=== PATIENT | female | born 1950 | race Caucasian/White ===

== ENCOUNTER 2018-01-20 09:18 | Emergency (ER) | payer MEDICARE ==
[2018-01-20 10:04] VITALS: BP 129/73
--- NOTE | 2018-01-20 10:40 | UC ---
Upper Extremity HPI - HPI Summary HPI Summary: 67 year old female presents with right elbow pain. States yesterday she slipped on wet grass, fell backward, and struck right elbow on metal painter of horse trailer. Pain is constant ache over lateral aspect of elbow. Non-radiating. Worsens with movement. Improves with meloxicam. Denies numbness or tingling. - History of Current Complaint Chief Complaint: UCUpperExtremity Stated Complaint: RIGHT ARM INJURY Time Seen by Provider: 01/20/18 10:18 Hx Obtained From: Patient Onset/Duration: Sudden Onset Severity Currently: Moderate Pain Intensity: 9 Location Of Pain: Is Discrete @ - right lateral elbow Character: Aching Aggravating Factor(s): Movement, Flexion, Extension Alleviating Factor(s): OTC Meds, Rest Associated Signs And Symptoms: Negative: Swelling, Bruising, Weakness, Numbness/ Tingling - Allergies/Home Medications Allergies/Adverse Reactions: Allergies Allergy/AdvReac Type Severity Reaction Status Date / Time Adhesive Tape Allergy Rash Verified 01/20/18 09:55 Home Medications: Home Medications Meloxicam [Mobic] 1 tab DAILY 01/20/18 [History Confirmed 01/20/18] PMH/Surg Hx/FS Hx/Imm Hx Cardiovascular History: Hypertension Other History Of: Negative For: Anticoagulant Therapy - Surgical History Surgical History: Yes Surgery Procedure, Year, and Place: BILATERAL HIP REPLACEMENT/BUNION REMOVAL/ TUBIAL LIGATION - Family History Family History: Noncontributory - Social History Occupation: Retired Lives: With Family Alcohol Use: Rare Substance Use Type: None Smoking Status (MU): Never Smoked Tobacco Review of Systems Constitutional: Negative Skin: Negative Neurovascular: Negative Musculoskeletal: Arthralgia - right elbow, Decreased ROM - right elbow Is Patient Immunocompromised?: No All Other Systems Reviewed And Are Negative: Yes Physical Exam Triage Information Reviewed: Yes Appearance: Well-Appearing, Well-Nourished, Pain Distress - Mildly uncomfortable. Right arm supported with pillow. Vital Signs: Initial Vital Signs Temp 98 F 01/20/18 09:57 Pulse 73 01/20/18 09:57 Resp 16 01/20/18 09:57 BP 129/73 01/20/18 09:57 Pulse Ox 97 01/20/18 09:57 Neck: Positive: Supple, Nontender Respiratory: Positive: No respiratory distress Cardiovascular: Positive: Pulses Normal, Brisk Capillary Refill Musculoskeletal: Positive: Strength Intact - Slat Pickler strengths equal bilaterally, ROM Limited @ - Flexion and extension right elbow d/t pain, Edema @ - Mild edema left lateral elbow, Other: - Tenderness with palpation over lateral epicondyle. No crepitus or gross deformity noted. Diagnostics - Radiology No standard instances Xray Interpretation: Positive (See Comments) Radiology Interpretation Completed By: ED Physician - Mildly displaced fracture lateral epicondyle right humerus - question of old fracture, Radiologist - Patient Name: PEDRO NUNES Medical Record#: [id number] Ordering Physician : Jl Anaya NP Acct.#: [id number] : 1950 Age: 67 Sex: F Location: [facility] [place] Exam Date: 01/20/18 1025 ADM Status: REG ER Order Information: ELBOW RIGHT 3+ VWS Accession Number: [id number] CPT: 92400 Indication: Right arm injury. 4 views of the right elbow demonstrates degenerative changes with osteophyte formation of the coronoid process as well as the radius. The lateral epicondyles demonstrate likely old injury. No acute injury is noted. IMPRESSION: Multiple areas of degenerative changes with osteophyte formation. Likely old fracture of the lateral epicondyles. Upper Extremity Course/Dx - Course Course Of Treatment: 67-year-old female presents with right elbow pain after slipping and falling yesterday and striking her elbow on the metal painter of a horse trailer. On exam she was tender over the lateral aspect of the elbow. X- ray shows a fracture of the lateral condyle was a question as to whether this may be an old fracture. With the pain will treat as an acute fracture. Patient was placed in a sling. Recommend RICE, zhac-iih-ipualir analgesics, and range of motion exercises. She was given a referral for follow-up with orthopedic surgery. Warning symptoms reviewed. Verbalizes understanding and agrees with plan of care. - Differential Dx/Diagnosis Differential Diagnosis/HQI/PQRI: Bursitis, Contusion, Fracture (Closed) Provider Diagnoses: right elbow pain Discharge - Sign-Out/Discharge Documenting (check all that apply): Patient Departure All imaging exams completed and their final reports reviewed: Yes - Discharge Plan Condition: Stable Disposition: HOME Patient Education Materials: Elbow Fracture (ED) Referrals: Eros Cagle NP [Primary Care Provider] - Vicente Cohen MD [Medical Doctor] - 5 Days (If no improvement. Call for appointment.) Additional Instructions: The x-ray does performed in the clinic today showed a fracture however it appears to be old. Because you are tender over that area I am going to treat it as an acute fracture. Wear this ling that was provided to you for the next 2 days. You may remove to shower and to sleep. Be sure to take your arm out of the sling every couple of hours and do some gentle range of motion exercises. After 2 days you do not need to use the sling but you should continue the range of motion exercises. Rest the arm as much as possible. Apply ice for 15-20 minutes over the affected area at least 4 times a day. Be sure to keep her arm elevated at the level of heart to help reduce any swelling. You may continue to use your meloxicam. You should not take any other anti- inflammatories such as ibuprofen (Advil, Motrin) or naproxen (Aleve) as these are very similar to the meloxicam. You may take acetaminophen (Tylenol) according to directions as needed for additional pain relief. I have given you a referral to Dr. Cohen, orthopedic surgery, for follow-up if your symptoms persist. Seek immediate medical attention if you have worsening pain that is not relieved with pain medications, have increased swelling, you develop numbness, tingling, or weakness of the arm, hands, or fingers, lose function of the arm. - Billing Disposition and Condition Condition: STABLE Disposition: Home
--- NOTE | 2018-01-20 10:55 | RAD ---
Indication: Right arm injury. 4 views of the right elbow demonstrates degenerative changes with osteophyte formation of the coronoid process as well as the radius. The lateral epicondyles demonstrate likely old injury. No acute injury is noted. IMPRESSION: Multiple areas of degenerative changes with osteophyte formation. Likely old fracture of the lateral epicondyles.
== END 2018-01-20 11:22 | disposition home or self-care (01) ==
LOC: UCCORT 09:18
DX: M25.521 Pain in right elbow (principal); I10 Essential (primary) hypertension; L23.1 Allergic contact dermatitis due to adhesives; Z96.643 Presence of artificial hip joint, bilateral; Z79.1 Long term (current) use of non-steroidal anti-inflammatories (NSAID); Z87.81 Personal history of (healed) traumatic fracture
CPT/HCPCS: 99202; G0463

== ENCOUNTER 2019-01-22 11:45 | Inpatient (IN) | payer MEDICARE ==
--- NOTE | 2019-01-13 15:11 | HP ---
HISTORY AND PHYSICAL: DATE OF ADMISSION/SURGERY: 01/22/19 DATE OF OFFICE VISIT: 01/12/19 SURGEON: Amanda Zhang MD.* (DICTATED BY CRISTAL GRAVES) PROCEDURE: Right total knee arthroplasty. CHIEF COMPLAINT: Right knee pain. HISTORY OF PRESENT ILLNESS: Ms. Cordero is a 68-year-old female with continued complaints of right knee pain secondary to end-stage osteoarthritis. She has failed conservative treatment and elected to proceed with a right total knee arthroplasty. PAST MEDICAL HISTORY: Hypertension, high cholesterol, mitral valve regurgitation, GERD, basal cell carcinoma, and history of Lyme disease. PAST SURGICAL HISTORY: Bunionectomy and bilateral total hip arthroplasties. CURRENT MEDICATIONS: 1. Amlodipine 5 mg a day. 2. Losartan potassium 50 mg a day. 3. Meloxicam 15 mg daily. 4. Ranitidine 150 mg twice a day. 5. Magnesium 300 mg a day. 6. Vitamin C. 7. Vitamin D. 8. Vitamin E. 9. Probiotic. 10. Metamucil as needed. ALLERGIES: No known drug allergies. FAMILY HISTORY: Coronary artery disease. SOCIAL HISTORY: She is a 68-year-old female, lives with her . She does not smoke, use drugs or alcohol. REVIEW OF SYSTEMS: A complete 14-point review of systems was reviewed with the patient. It was positive for GERD. She denies history of DVT, PE, hepatitis, HIV, or anesthesia problems. PHYSICAL EXAMINATION GENERAL: She is well developed, well nourished, in no acute distress. VITAL SIGNS: She stands 67 inches tall, weighs 248 pounds. Blood pressure is 140/82, heart rate is 76. HEENT: Normocephalic, atraumatic. NECK: Supple. No palpable lymph nodes. PULMONARY: The lungs are clear to auscultation bilaterally. CARDIO: Regular rate and rhythm. Strong S1, S2. ABDOMEN: Soft, nontender, nondistended. NEUROLOGICAL: She is alert and oriented x3. MUSCULOSKELETAL: Right lower extremity: The skin is intact. There are no open wounds or abrasions. There is a moderate effusion of the right knee joint. Range of motion is 10 to 100 degrees of flexion. She has a 2+ dorsalis pedis pulse and intact sensation. ASSESSMENT AND PLAN: Ms. Cordero is a 68-year-old female with end-stage osteoarthritis of the right knee. She has failed conservative treatment and elected to proceed with a right total knee arthroplasty. The surgery is scheduled for 01/22/[address] Zhang discussed the risks and benefits of the surgery at today's visit and all of her questions were answered. She will follow up with Dr. Zhang 2 weeks after the surgery. CRISTAL GRAVES [id number]/[facility] #: [id number] MTDShannan
[~2019-01-22 11:45] MED LIST: Acetaminophen TAB* 325 MG PO ONE; Buffered Lidocaine 1% SYRIN* 1 ML/SYRINGE INTRADERM ONE; Bupivacaine 0.5% SDV PF* 30ML VIAL ONE; Dexamethasone TAB* 4 MG PO ONE; DiMENhydriNATE IV* 50 MG/ML VIAL IV PUSH PRN; Famotidine IV* 10 MG/ML 2 ML (20 mg) IV ONE; Gabapentin CAP(*) 300 MG PO ONE; HYDROmorphone INJ1* 1 MG/ML SYRINGE IV PRN; Lactated Ringers 1000 ML Bag* 1,000 ML IV SCH; Naloxone* 0.4 MG/ML 1 ML VIAL IV PRN; Ondansetron ODT TAB* 4 MG PO ONE; PROCHLORPERAZINE INJ 5 MG/ML 2 ML VIAL IV PRN; Scopolamine 1.5 mg* PATCH TRANSDERM PRN; Tranexamic Acid 1,000 MG in NS 0.9% 50 ML* (outpatient use) IV SCH; celeCOXIB CAP* 200 MG PO ONE; oxyCODONE TAB* 5 MG TAB PO PRN
--- OUTSIDE RECORDS SUMMARY | 2019-01-22 11:50 | XMS REPORT | Continuity of Care Document ---
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 Medicine Problems Active Problems Provider Date Localized, primary osteoarthritis of the HerminioDmitry MD Onset: 2011 pelvic region and thigh Prosthetic arthroplasty of the hip Cori Muro MD Onset: 02/26/2012 Chest pain Yamel Giron ANP Onset: 01/12/2015 Mixed hyperlipidemia Yamel Giron ANP Onset: 01/12/2015 Essential hypertension Yamel Giron ANP Onset: 01/12/2015 Contact dermatitis Lavinia Desai MD, PHD Onset: 06/24/2018 Actinic keratosis Lavinia Desai MD, PHD Onset: 06/24/2018 Insomnia Lavinia Desai MD, PHD Onset: 06/24/2018 Female climacteric state Lavinia Desai MD, PHD Onset: 06/24/2018 Localized, primary osteoarthritis Lavinia Desai MD, PHD Onset: 06/24/2018 Diaphragmatic hernia Lavinia Desai MD, PHD Onset: 06/24/2018 Pain in limb Lavinia Desai MD, PHD Onset: 07/14/2018 Gynecologic examination Lavinia Desai MD, PHD Onset: 07/14/2018 Social History Type Date Description Comments Sex Unknown Tobacco Use Start: Unknown Never Smoked Cigarettes ETOH Use Rarely consumes alcohol Tobacco Use Start: Unknown Patient denies history of smoking Smoking Status Reviewed: 07/14/18 Patient denies history of smoking Allergies, Adverse Reactions, Alerts Active Allergies Reaction Severity Comments Date NKDA 06/06/2017 Environmental 07/01/2012 Inactive Allergies NKDA 10/29/2011 Adhesives Sores 01/02/2012 Medications Active Medications SIG Qnty Indications Ordering Date Provider D3 Maximum Strength 1 cap by mouth 90caps M17.0 Lavinia Desai, 2018 every day MD, PHD 5000Unit Capsules Arnicare apply to affected 75g M17.0 Lavinia Desai, 06/24/2018 Gel area four times a MD, PHD day pain, swelling, bruising Ranitidine HCL take one tablet by 180tabs K44.9 Lavinia Desai, 2018 mouth twice a day , PHD 1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 as needed Nystatin apply to affected 90gm L30.9 Lavinia Desai, 06/24/2018 area twice a day , PHD [id number]/GM Cream until rash has disappeared for a few days Losartan Potassium 1 by mouth every 90tabs I10 Matilda Alexander 03/14/2018 day PETER Wu, 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 LARRY OPERATOR Amlodipine Besylate 1 by mouth every 30tabs I10 Matilda Alexander 01/30/2018 day PETER Wu, 5mg Tablets LARRY OPERATOR Herbal Supplements Matilda Alexander 06/06/2017 X 8 PETER Wu, LARRY OPERATOR Meloxicam 1 by mouth every Unknown 15mg day Tablets Magnesium take 1 tab by mouth Unknown 300mg every daily Capsules Aspirin Adult 1 tab by mouth Unknown 325mg every day Tablets History Medications Gabapentin 1-2 tab by mouth 60caps N95.1 Lavinia Desai, 07/14/2018 - 300mg at bedtime MD, PHD Unknown Capsules Immunizations CPT Code Status Date Vaccine Lot # [id number] Given 06/24/2018 Tdap injection Vital Signs Date Vital Result Comment 01/02/2019 7:49am BP Systolic Sitting Left Arm 126 mmHg BP Diastolic Sitting Left Arm 72 mmHg Heart Rate 71 /min Respiratory Rate 18 /min Height 67 inches 5'7" Weight 248.00 lb BMI (Body Mass Index) 38.8 kg/m2 BSA (Body Surface Area) 2.22 m2 [place] body weight in kilograms 61 kg O2 % BldC Oximetry 97 % 07/30/2018 10:41am BP Systolic Sitting Left Arm 138 mmHg BP Diastolic Sitting Left Arm 90 mmHg Heart Rate 76 /min Respiratory Rate 18 /min Height 67 inches 5'7" Weight 249.00 lb BMI (Body Mass Index) 39.0 kg/m2 BSA (Body Surface Area) 2.22 m2 [place] body weight in kilograms 61 kg O2 Saturation Level with Exercise 93 % Results Test Date Facility Test Result H/L Range Note Genital Culture 07/14/2018 [facility] Gram Stain GRAM STAIN 1, 2 W/ Gram Stain [address] [place] <[place] [address] NOTE> [phone] Gram Stain FEW GR POS. BACI <SEE NOTE> 3 Gram Stain RARE GRAM POSITI <SEE NOTE> 4 Gram Stain FEW WHITE BLOOD <SEE NOTE> 5 Genital Culture GENITAL ALAN Laboratory test 07/14/2018 [facility] Uric Acid 4.2 mg/dL Normal 2.6-6.[address] [place] [address] [phone] Anti-Nuclear Antibodies Direct Negative AU/mL Negative 6 Rheumatoid Factor Screen < 10.0 IU/mL Normal 0.0-15.0 CCP Igg/Iga 07/14/2018 [facility] CCP Igg/Iga 5 units 0-[address] [place] [address] [phone] HPV High Risk 07/14/2018 [facility] HPV, high-risk NEGATIVE Negative [address] [place] [address] [phone] HPV Source: THIN PREP 1 Z01.419,M79.674 2 GRAM STAIN INDICATES NORMAL GENITAL ALAN 3 FEW GR POS. BACILLI SUGGESTIVE OF LACTOBACILLUS SP. 4 RARE GRAM POSITIVE COCCI 5 FEW WHITE BLOOD CELLS 6 Performed at: - [facility] [id number] Third Miller: Natalia Landon MD, Phone: [phone] Performed at: - [facility] [address] [id number] Third Miller: Sera Del Toro MD, Phone: [phone] 7 Negative <20 Weak positive 20 - 39 Moderate positive 40 - 59 Strong positive >59 Procedures Date Code Description Status 01/02/2019 23829 EKG-Tracing And Report Completed Medical Devices Description No Information Available Encounters Type Date Location Provider Dx Diagnosis Office Visit 01/02/2019 Cardiology Office Bernard Reyes Z01.810 Encounter for 8:20a CRISTAL Francis preprocedural cardiovascular examination I42.9 Cardiomyopathy, unspecified I34.0 Nonrheumatic mitral (valve) insufficiency I10 Essential (primary) hypertension E78.2 Mixed hyperlipidemia Office Visit 07/30/2018 10:40a Cardiology Matilda Alexander R07.9 Chest pain, Office PETER Wu, unspecified LARRY OPERATOR I42.9 Cardiomyopathy, unspecified I34.0 Nonrheumatic mitral (valve) insufficiency I10 Essential (primary) hypertension E78.2 Mixed hyperlipidemia Office Visit 07/14/2018 11:30a Family Medicine Giselle, Z01.419 Encntr for mineral engineer [facility] MD Lavinia, exam (general) PHD (routine) w/o abn findings Z01.419 Encntr for mineral engineer exam (general) (routine) w/o abn findings N95.1 Menopausal and female climacteric states N95.1 Menopausal and female climacteric states M79.674 Pain in right toe(s) I10 Essential (primary) hypertension M79.674 Pain in right toe(s) Assessments Date Code Description Provider 01/02/2019 Z01.810 Encounter for preprocedural Bernard Reyes, PA cardiovascular examination 01/02/2019 I42.9 Cardiomyopathy, unspecified Bernard Reyes, PA 01/02/2019 I34.0 Nonrheumatic mitral (valve) Bernard Reyes, PA insufficiency 01/02/2019 I10 Essential (primary) hypertension Bernard Reyes, PA 01/02/2019 E78.2 Mixed hyperlipidemia Bernard Reyes, PA 07/30/2018 R07.9 Chest pain, unspecified Matilda Alexander, MSN, LARRY OPERATOR 07/30/2018 I42.9 Cardiomyopathy, unspecified Matilda Alexander, MSN, LARRY OPERATOR 07/30/2018 I34.0 Nonrheumatic mitral (valve) AlxeanderMatilda muñiz, MSN, insufficiency LARRY OPERATOR 07/30/2018 I10 Essential (primary) hypertension Matilda Alexander, MSN, LARRY OPERATOR 07/30/2018 E78.2 Mixed hyperlipidemia Matilda Alexander, MSN, LARRY OPERATOR 07/14/2018 Z01.419 Encounter for gynecological Lavinia Desai MD, PHD examination (general) (routine) without abnormal findings 07/14/2018 Z01.419 Encounter for gynecological Lavinia Desai MD, PHD examination (general) (routine) 07/14/2018 N95.1 Menopausal and female climacteric Lavinia Desai MD, PHD states 07/14/2018 N95.1 Menopausal and female climacteric Lavinia Desai MD, PHD states 07/14/2018 M79.674 Pain in right toe(s) Lavinia Desai MD, PHD 07/14/2018 I10 Essential (primary) hypertension Lavinia Desai MD, PHD 07/14/2018 M79.674 Pain in right toe(s) Lavinia Desai MD, PHD Plan of Treatment Future Appointment(s):01/13/2019 2:15 pm - Lavinia Desai MD, PHD at [facility]08/05/2019 11:00 am - Matilda Alexander, MSN, LARRY OPERATOR at Cardiology [id number]/02/2019 - Bernard Reyes, PAZ01.810 Encounter for preprocedural cardiovascular examinationComments:As above.I42.9 Cardiomyopathy, unspecifiedComments:Monitor. No changes.I34.0 Nonrheumatic mitral (valve) insufficiencyNew Orders:Echocardiogram, Ordered: 01/02/19Comments:We will repeat the echo in 1 year.I10 Essential (primary) hypertensionComments:Monitor. BP goal is <140/90 mmHg.E78.2 Mixed hyperlipidemiaNew Labs:Liver Function Tests, Ordered: 01/02/19LDL Cholesterol Profile, Ordered: 01/02/19Comments:Due for a lipid monitor.AllFollow up:1 year with echo prior Functional Status Functional Condition Comment Date Status Independent with all ADL's Active Mental Status Description No Information Available Referrals Description No Information Available
--- OUTSIDE RECORDS SUMMARY | 2019-01-22 11:50 | XMS REPORT | Continuity of Care Document ---
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 Medicine Problems Active Problems Provider Date Localized, primary osteoarthritis of the mDitry Durham MD Onset: 2011 pelvic region and thigh [...] hernia Lavinia Desai MD, PHD Onset: 06/24/2018 Cardiomyopathy, unspecified Lavinia Desai MD, PHD Onset: 01/13/2019 Mitral valve disorder Lavinia Desai MD, PHD Onset: 01/13/2019 Pain in limb Lavinia Desai MD, PHD Onset: 07/14/2018 Gynecologic examination Lavinia Desai MD, PHD Onset: 07/14/2018 Social History Type Date Description Comments Sex Unknown Tobacco Use Start: Unknown Never Smoked Cigarettes ETOH Use Rarely consumes alcohol Tobacco Use Start: Unknown Patient denies history of smoking Smoking Status Reviewed: 01/08/19 Patient denies history of smoking Allergies, Adverse [...] Lavinia Desai, 2018 mouth twice a day MD, PHD 1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 as needed Nystatin apply to affected 90gm L30.9 Lavinia Desai, 06/24/2018 area twice a day MD, PHD [id number]/GM Cream until rash has disappeared for a few days Losartan Potassium 1 by mouth every 90tabs I10 Matilda Alexander 03/14/2018 day PETER Wu, 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 LOADER Amlodipine Besylate 1 by mouth every 30tabs I10 Matilda Alexander 01/30/2018 day PETER Wu, 5mg Tablets 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 LOADER Herbal Supplements Matilda Alexander 06/06/2017 X 8 PETER Wu, 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 LOADER Meloxicam 1 by mouth every 90tabs M16.0 Deanne Riddle, 15mg day 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 LOADER Tablets Magnesium take 1 tab by mouth Unknown 300mg every daily Capsules Aspirin Adult 1 tab by mouth Unknown 325mg every day Tablets Immunizations CPT Code Status Date Vaccine Lot # [id number] Given 06/24/2018 Tdap injection Vital Signs Date Vital Result Comment 01/13/2019 2:00pm BP Systolic 132 mmHg BP Diastolic 80 mmHg Body Temperature 97.4 F Heart Rate 82 /min Respiratory Rate 16 /min Height 67 inches 5'7" Weight 247.00 lb BMI (Body Mass Index) 38.7 kg/m2 BSA (Body Surface Area) 2.21 m2 [place] body weight in kilograms 61 kg O2 % BldC Oximetry 97 % 01/02/2019 7:49am BP Systolic Sitting Left Arm 126 mmHg BP Diastolic Sitting Left Arm 72 mmHg Heart Rate 71 /min Respiratory Rate 18 /min Height 67 inches 5'7" Weight 248.00 lb BMI (Body Mass Index) 38.8 kg/m2 BSA (Body Surface Area) 2.22 m2 [place] body weight in kilograms 61 kg O2 % BldC Oximetry 97 % Results Description No Information Available Procedures Date Code Description Status 01/02/2019 71943 EKG-Tracing And Report Completed Medical Devices Description No Information Available Encounters Type Date Location Provider Dx Diagnosis Office Visit 01/13/2019 Family Medicine Giselle Z01.810 Encounter for 2:15p [facility] MD Lavinia, preprocedural PHD cardiovascular examination M17.0 Bilateral primary osteoarthritis of knee N95.1 Menopausal and female climacteric states I10 Essential (primary) hypertension I34.0 Nonrheumatic mitral (valve) insufficiency I42.9 Cardiomyopathy, unspecified Office Visit 01/02/2019 Cardiology Brian Reyes01.810 Encounter for 8:20a Office Bernard Francis, preprocedural PA cardiovascular examination I42.9 Cardiomyopathy, unspecified I34.0 Nonrheumatic mitral (valve) insufficiency I10 Essential (primary) hypertension E78.2 Mixed hyperlipidemia Office Visit 07/30/2018 10:40a Cardiology Matilda Alexander R07.9 Chest pain, Office PETER Wu, unspecified 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 I42.9 Cardiomyopathy, unspecified I34.0 Nonrheumatic mitral (valve) insufficiency I10 Essential (primary) hypertension E78.2 Mixed hyperlipidemia Assessments Date Code Description Provider 01/13/2019 Z01.810 Encounter for preprocedural Lavinia Desai MD, PHD cardiovascular examination 01/13/2019 M17.0 Bilateral primary osteoarthritis of Lavinia Desai MD, PHD knee 01/13/2019 N95.1 Menopausal and female climacteric Lavinia Desai MD, PHD states 01/13/2019 I10 Essential (primary) hypertension Lavinia Desai MD, PHD 01/13/2019 I34.0 Nonrheumatic mitral (valve) Lavinia Desai MD, PHD insufficiency 01/13/2019 I42.9 Cardiomyopathy, unspecified Lavinia Desai MD, PHD 01/02/2019 Z01.810 Encounter for preprocedural Bernard Reyes, PA cardiovascular examination 01/02/2019 I42.9 Cardiomyopathy, unspecified Bernard Reyes, PA 01/02/2019 I34.0 Nonrheumatic mitral (valve) Bernard Reyes, PA insufficiency 01/02/2019 I10 Essential (primary) hypertension Bernard Reyes, PA 01/02/2019 E78.2 Mixed hyperlipidemia Bernard Reyes, PA 07/30/2018 R07.9 Chest pain, unspecified Matilda Alexander, MSN, 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 LOADER 07/30/2018 I42.9 Cardiomyopathy, unspecified Matilda Alexander, MSN, 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 LOADER 07/30/2018 I34.0 Nonrheumatic mitral (valve) Matilda Alexander, PETER, insufficiency 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 LOADER 07/30/2018 I10 Essential (primary) hypertension Matilda Alexander, MSN, 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 LOADER 07/30/2018 E78.2 Mixed hyperlipidemia Matilda Alexander, MSN, 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 LOADER Plan of Treatment Future Appointment(s):08/05/2019 11:00 am - Matilda Alexander, PETER, 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 LOADER at Cardiology [id number]/13/2019 - Lavinia Desai MD, PHDZ01.810 Encounter for preprocedural cardiovascular examinationNew Labs:Ua RFX Micro & Culture II, Ordered: 01/13/19CBC W/Auto Diff & PLT, Ordered: 01/13/19CMP & CBC, Ordered: 01/13/19PT W/Inr, Ordered: 01/13/19Comments:LABS received [place] all normalRebecca is optimized for her knee surgery.Follow up: need records release from Dr. Zhang for lab work drawn on 01/12/19 so we can clear her for wqaaiazF63.0 Bilateral primary osteoarthritis of kneeN95.1 Menopausal and female climacteric mdpzexW80 Essential (primary) ywxkxjrmzpkbC54.0 Nonrheumatic mitral (valve) onzbgbdlzvmshY40.9 Cardiomyopathy , unspecified Functional Status Functional Condition Comment Date Status Independent with all ADL's Active Mental Status Description No Information Available Referrals Description No Information Available
--- OUTSIDE RECORDS SUMMARY | 2019-01-22 11:50 | XMS REPORT | Continuity of Care Document ---
:1950 External Reference #:[id number] Author Name Amanda Zhang M.D. (transmitted by agent of provider Bong Webster) Address [address] [place] [address] [place] [address] Care Team Providers Name Role Phone Lavinia Desai M.D. 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 Onset: 12/31/2018 Social History Type Date Description Comments Sex Unknown Tobacco Use Start: Unknown Patient has never smoked Smoking Status Reviewed: 01/12/19 Patient has never smoked Allergies, Adverse Reactions, Alerts Description No Known Drug Allergies Medications Active Medications SIG Qnty Indications Ordering Provider Date Amoxicillin take 4 pills, 2 g 4caps M25.561 Amanda Zhang, 01/12/2019 500mg 1 hour before M.D. Capsules dental or gi procedure Amlodipine Besylate Take One Tablet By Unknown 5mg Mouth Every Day Tablets Losartan Potassium Take One Tablet By Unknown 50mg Mouth Every Day Tablets Meloxicam Take One Tablet By Unknown 15mg Tablets Mouth Every Day Maximum Daily Dose 1 Ranitidine HCL Take One Tablet By Unknown 150mg Mouth Twice A Day Tablets as Needed Magnesium take one Unknown 300mg capsule/tablet Capsules daily by mouth Vitamin C 1 by mouth every Unknown 1000mg day Tablets Vitamin D Unknown (Ergocalciferol) Food Enzyme Unknown Vitamin E Unknown Probiotic Unknown Metamucil Fiber Unknown 51.7% Packet Immunizations Description No Information Available Vital Signs Date Vital Result Comment 01/12/2019 10:20am Height 67 inches 5'7" Weight 248.50 lb Heart Rate 76 /min BP Systolic 140 mmHg BP Diastolic 82 mmHg Respiratory Rate 12 /min Pain Level 5 BMI (Body Mass Index) 38.9 kg/m2 12/31/2018 10:15am Height 67 inches 5'7" Weight 248.00 lb Heart Rate 72 /min BP Systolic 138 mmHg BP Diastolic 84 mmHg Body Temperature 97.5 F Pain Level 5 BMI (Body Mass Index) 38.8 kg/m2 Results Description No Information Available Procedures Description No Information Available Medical Devices Description No Information Available Encounters Description No Information Available Assessments Date Code Description Provider 01/12/2019 M25.561 Pain in right knee Amanda Zhang M.D. 01/12/2019 M25.461 Effusion, right knee Amanda Zhang M.D. 01/12/2019 M17.0 Bilateral primary osteoarthritis of knee Amanda Zhang M.D. 12/31/2018 M25.561 Pain in right knee Amanda Zhang M.D. 12/31/2018 M25.562 Pain in left knee Amanda Zhang M.D. 12/31/2018 M25.461 Effusion, right knee Amanda Zhang M.D. 12/31/2018 M25.462 Effusion, left knee Amanda Zhang M.D. 12/31/2018 M17.0 Bilateral primary osteoarthritis of knee Amanda Zhang M.D. Plan of Treatment Future Appointment(s):02/04/2019 10:15 am - Amanda Zhang M.D. at [facility] at Zmmetz2201/22/2019 4:00 pm - Jonathan Silva PA-C at [facility] at Himsmr0701/22/2019 4:00 pm - CRISTAL Sosa at [facility] at Fgjvqb6401/22/2019 4:00 pm - Amanda Zhang M.D. at [facility] at Adexyk2001/12/2019 - Amanda Zhang M.D.M25.561 Pain in right kneeNew Medication:Amoxicillin 500 mg - take 4 pills, 2 g 1 hour before dental or gi procedureNew Therapy:Physical TherapyFollow up:Follow up: 2 weeks after ovhedbyI26.461 Effusion, right kneeM17.0 Bilateral primary osteoarthritis of knee Functional Status Description No Information Available Mental Status Description No Information Available Referrals Description No Information Available
--- OUTSIDE RECORDS SUMMARY | 2019-01-22 11:50 | XMS REPORT | Continuity of Care Document ---
:1950 External Reference #:[id number] Author Name Amanda Zhang M.D. (transmitted by agent of provider Bong Webster) Address [address] [place] [address] [place] [address] Care Team Providers Name Role Phone Lavinia Desai M.D. 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 Onset: 12/31/2018 Social History Type Date Description Comments Sex Unknown Tobacco Use Start: Unknown Patient has never smoked Smoking Status Reviewed: 12/31/18 Patient has never smoked Allergies, Adverse Reactions, Alerts Description No Known Drug Allergies Medications Active Medications SIG Qnty Indications Ordering Provider Date Amlodipine Besylate Take One Tablet Unknown 5mg By Mouth Every Tablets Day Losartan Potassium Take One Tablet Unknown 50mg By Mouth Every Tablets Day Meloxicam Take One Tablet Unknown 15mg Tablets By Mouth Every Day Maximum Daily Dose 1 Ranitidine HCL Take One Tablet Unknown 150mg By Mouth Twice A Tablets Day as Needed Magnesium take one Unknown 300mg Capsules capsule/tablet daily by mouth Vitamin C 1 by mouth every Unknown 1000mg Tablets day Vitamin D Unknown (Ergocalciferol) Food Enzyme Unknown Vitamin E Unknown Probiotic Unknown Immunizations Description No Information Available Vital Signs Date Vital Result Comment 12/31/2018 10:15am Height 67 inches 5'7" Weight 248.00 lb Heart Rate 72 /min BP Systolic 138 mmHg BP Diastolic 84 mmHg Body Temperature 97.5 F Pain Level 5 BMI (Body Mass Index) 38.8 kg/m2 Results Description No Information Available Procedures Description No Information Available Medical Devices Description No Information Available Encounters Description No Information Available Assessments Date Code Description Provider 12/31/2018 M25.561 Pain in right knee Amanda Zhang M.D. 12/31/2018 M25.562 Pain in left knee Amanda Zhang M.D. 12/31/2018 M25.461 Effusion, right knee Amanda Zhang M.D. 12/31/2018 M25.462 Effusion, left knee Amanda Zhang M.D. 12/31/2018 M17.0 Bilateral primary osteoarthritis of knee Amanda Zhang M.D. Plan of Treatment Future Appointment(s):01/22/2019 4:00 pm - Jonathan Silva PA-C at [facility] at Alwsdl8401/22/2019 4:00 pm - CRISTAL Sosa at [facility] at Gfisqg3701/22/2019 4:00 pm - Amanda Zhang M.D. at [facility] at Najqwv4501/12/2019 10:00 am - Amanda Zhang M.D. at [facility] at Zajycm2612/31/2018 - Amanda Zhang M.D.M25.561 Pain in right kneeM25.562 Pain in left kneeFollow up:Follow up: 7-10 days before fyenmxwI71.461 Effusion, right kneeM25.462 Effusion, left kneeM17.0 Bilateral primary osteoarthritis of knee Functional Status Description No Information Available Mental Status Description No Information Available Referrals Description No Information Available
--- OUTSIDE RECORDS SUMMARY | 2019-01-22 11:50 | XMS REPORT | Continuity of Care Document ---
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 Medicine Problems Active Problems Provider Date Localized, [...] Capsules Arnicare apply to affected 75g M17.0 Lvainia Desai, 06/24/2018 Gel area four times a MD, PHD day pain, swelling, bruising Ranitidine HCL take one tablet by 180tabs K44.9 Lavinia Desai, 2018 mouth twice a day , PHD 1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 as needed Nystatin apply to affected 90gm L30.9 Lavinia Desai, 06/24/2018 area twice a day , PHD [id number]/GM Cream until rash has disappeared for a few days Losartan Potassium 1 by mouth every 90tabs I10 Matilda Alexander 03/14/2018 day PETER Wu, 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 Amlodipine Besylate 1 by mouth every 30tabs I10 Matilda Alexander 01/30/2018 day PETER Wu, 5mg Tablets 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 Herbal Supplements Matilda Alexander 06/06/2017 X 8 PETER Wu, 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 Meloxicam 1 by mouth every Unknown 15mg day Tablets Magnesium take 1 tab by mouth Unknown 300mg every daily Capsules Aspirin Adult 1 tab by mouth Unknown 325mg every day Tablets History Medications Gabapentin 1-2 tab by mouth 60caps N95.1 Lavinia Desai, 07/14/2018 - 300mg at bedtime , PHD Unknown Capsules Immunizations CPT Code Status Date Vaccine Lot # [id number] Given 06/24/2018 Tdap injection Vital Signs Date Vital Result Comment 01/02/2019 7:49am BP Systolic Sitting Left Arm 126 mmHg BP Diastolic Sitting Left Arm 72 mmHg Heart Rate 71 /min Respiratory Rate 18 /min Height 67 inches 5'7" Weight 248.00 lb BMI (Body Mass Index) 38.8 kg/m2 BSA (Body Surface Area) 2.22 m2 [place] body weight in kilograms 61 kg O2 % BldC Oximetry 97 % 07/30/2018 10:41am BP Systolic Sitting Left Arm 138 mmHg BP Diastolic Sitting Left Arm 90 mmHg Heart Rate 76 /min Respiratory Rate 18 /min Height 67 inches 5'7" Weight 249.00 lb BMI (Body Mass Index) 39.0 kg/m2 BSA (Body Surface Area) 2.22 m2 [place] body weight in kilograms 61 kg O2 Saturation Level with Exercise 93 % Results Test Date Facility Test Result H/L Range Note Genital Culture 07/14/2018 [facility] Gram Stain GRAM STAIN 1, 2 W/ Gram Stain [address] INDIC <[place] [address] NOTE> [phone] Gram Stain FEW GR POS. BACI <SEE NOTE> 3 Gram Stain RARE GRAM POSITI <SEE NOTE> 4 Gram Stain FEW WHITE BLOOD <SEE NOTE> 5 Genital Culture GENITAL ALAN Laboratory test 07/14/2018 [facility] Uric Acid 4.2 mg/dL Normal 2.6-6.[address] [place] [address] [phone] Anti-Nuclear Antibodies Direct Negative AU/mL Negative 6 Rheumatoid Factor Screen < 10.0 IU/mL Normal 0.0-15.0 CCP Igg/Iga 07/14/2018 [facility] CCP Igg/Iga 5 units 0-[address] [place] [address] [phone] HPV High Risk 07/14/2018 [facility] HPV, high-risk NEGATIVE Negative [address] [place] [address] [phone] HPV Source: THIN PREP 1 Z01.419,M79.674 2 GRAM STAIN INDICATES NORMAL GENITAL ALAN 3 FEW GR POS. BACILLI SUGGESTIVE OF LACTOBACILLUS SP. 4 RARE GRAM POSITIVE COCCI 5 FEW WHITE BLOOD CELLS 6 Performed at: - [facility] [id number] Web Weaver: Natalia Landon MD, Phone: [phone] Performed at: - [facility] [address] [id number] Web Weaver: Sera Del Toro MD, Phone: [phone] Negative <20 Weak positive 20 - 39 Moderate positive 40 - 59 Strong positive >59 Procedures Date Code Description Status 01/02/2019 11051 EKG-Tracing And Report Completed Medical Devices Description No Information Available Encounters Type Date Location Provider Dx Diagnosis Office Visit 01/02/2019 Cardiology Office Bernard Reyes Z01.810 Encounter for 8:20a CRISTAL Francis preprocedural cardiovascular examination I42.9 Cardiomyopathy, unspecified I34.0 Nonrheumatic mitral (valve) insufficiency I10 Essential (primary) hypertension E78.2 Mixed hyperlipidemia Office Visit 07/30/2018 10:40a Cardiology Matilda Alexander R07.9 Chest pain, Office PETER Wu, unspecified 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 I42.9 Cardiomyopathy, unspecified I34.0 Nonrheumatic mitral (valve) insufficiency I10 Essential (primary) hypertension E78.2 Mixed hyperlipidemia Office Visit 07/14/2018 11:30a Family Medicine Giselle, Z01.419 Encntr for lumber cutter [facility] MD Lavinia, exam (general) PHD (routine) w/o abn findings Z01.419 Encntr for lumber cutter exam (general) (routine) w/o abn findings N95.1 [...] R07.9 Chest pain, unspecified Matilda Alexander, MSN, 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 07/30/2018 I42.9 Cardiomyopathy, unspecified Matilda Alexander, MSN, 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 07/30/2018 I34.0 Nonrheumatic mitral (valve) Matilda Alexander, MSN, insufficiency 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 07/30/2018 I10 Essential (primary) hypertension Matilda Alexander, MSN, 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 07/30/2018 E78.2 Mixed hyperlipidemia Matilda Alexander, MSN, 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 07/14/2018 Z01.419 Encounter for gynecological Lavinia Desai MD, PHD examination (general) (routine) without abnormal findings 07/14/2018 Z01.419 Encounter for gynecological Lavinia Dseai MD, PHD examination (general) (routine) 07/14/2018 N95.1 [...] pm - Lavinia Desai MD, PHD at [facility]08/05/2019 11:00 am - Matilda Alexander, MSN, 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 at Cardiology Tvjsox3901/02/2019 - Bernrad Reyes, PAZ01.810 Encounter for preprocedural cardiovascular examinationComments:As [...]
[2019-01-22] MEDS ORDERED: Dexamethasone IV* 4 MG/ML 1 ML (4 MG) ONE (12:56)
[2019-01-22] MEDS ORDERED: Ondansetron ODT TAB* 4 MG ONE (12:56)
[2019-01-22] MEDS ORDERED: Acetaminophen TAB* 325 MG ONE (12:57)
[2019-01-22] MEDS ORDERED: ceFAZolin 2 GM PREMIX in ORs 2 GM/50 ML BAG ONE (12:57)
[2019-01-22] MEDS ORDERED: Buffered Lidocaine 1% SYRIN* 1 ML/SYRINGE INTRADERM ONE (12:57)
[2019-01-22] MEDS ORDERED: Gabapentin CAP(*) 300 MG ONE (12:57)
[2019-01-22] MEDS ORDERED: celeCOXIB CAP* 200 MG ONE (12:57)
[2019-01-22] MEDS ORDERED: Famotidine IV* 10 MG/ML 2 ML (20 mg) ONE (12:58)
[2019-01-22] MEDS ORDERED: Dexamethasone TAB* 4 MG ONE (12:58)
[2019-01-22] MEDS ORDERED: Midazolam* 1 MG/ML 5 ML VIAL (5 MG) ONE (13:17)
[2019-01-22] MEDS ORDERED: KETAMINE HCL* 50 MG/ML 10 ML VIAL ONE (13:17)
[2019-01-22] MEDS ORDERED: fentaNYL* 50 MCG/ML 2 ML VIAL (100 MCG VIAL) ONE ×2 (13:17→18:17)
[2019-01-22] MEDS ORDERED: HYDROmorphone INJ1* 1 MG/ML SYRINGE ONE ×2 (15:34→17:21)
[2019-01-22] MEDS ORDERED: ROPIVACAINE 5 MG/ML 30 ML BTL (0.5%) ONE (16:10)
[2019-01-22] MEDS ORDERED: Ondansetron ODT TAB* 4 MG PO PRN (16:33)
[2019-01-22] MEDS ORDERED: Ondansetron INJ* 2 MG/ML VIAL IV PRN (16:33)
[2019-01-22] MEDS ORDERED: diPHENhydraMINE PO* 25 MG PO PRN (16:33)
[2019-01-22] MEDS ORDERED: diPHENhydraMINE IV* 50 MG/ML 1 ml VIAL (BENADRYL) IV PRN (16:33)
[2019-01-22] MEDS ORDERED: Morphine INJ* 2 MG/ML 1 ML SYRINGE (TWO MG - NEW SYRINGE VERSION) IV PRN (16:33)
[2019-01-22] MEDS ORDERED: traMADol TAB* 50 MG PO PRN (16:33)
[2019-01-22] MEDS ORDERED: Ondansetron TAB* 4 MG PO PRN (16:33)
[2019-01-22] MEDS ORDERED: Cyclobenzaprine TAB* 10 MG PO PRN (16:33)
[2019-01-22] MEDS ORDERED: Magnesium Hydroxide LIQ* 30 ML UDC PO PRN (16:33)
[2019-01-22] MEDS ORDERED: Polyethylene Glycol 3350* 17 GM PACKET PO PRN (16:33)
[2019-01-22] MEDS ORDERED: Lidocaine 2% PF * 5 ML VIAL ONE (17:27)
[2019-01-22] MEDS ORDERED: Propofol* 10 MG/ML 20 ML BTL ONE (17:27)
--- NOTE | 2019-01-22 18:04 | OP ---
Operative Report - Blank - Operative Report Date of Operation: 01/22/19 Note: PEDRO NUNES 1950 Date of Surgery: 01/22/19 Amanda Zhang MD Registered Physical Therapist: Colton BEE did help throughout the procedure with preparation of the knee, wound retraction, manipulation of the knee, and wound closure. Anesthesiologist: Valentín Trinidad MD Anesthesia Type: General Preoperative Diagnosis: Right severe degenerative osteoarthritis of the knee Postoperative Diagnosis: As above Procedure Performed: Right Total Knee Arthroplasty Tourniquet time: 49 minutes Complications: None Specimen: Bone and cartilage from the right knee joint sent to pathology. Hardware Used: Cemented Phelps and Nephew total knee hardware was used - For the femur a size 5 right legion posterior stabilized femoral component, for the tibia a size 5 right timothy II tibial baseplate, for the insert a size 9mm constrained posterior stabilized articular polyethylene insert, and for the patella a size 32 3-peg all poly patella. Brief History/Indication: PEDRO NUNES was known in clinic and had a history of severe right knee pain and swelling. She failed conservative treatment with anti-inflammatories, pain pills, intra-articular injections and physical therapy. She elected to undergo right total knee arthroplasty due to continued pain and decreased quality of life. Radiographs showed severe end stage osteoarthritis of the knee with bone on bone contact. Informed consent was obtained from the patient. She understood the risks of surgery included but were not limited to: bleeding, infection, damage to nearby structures, intraoperative fracture, nerve palsy, failure of the hardware, early loosening, knee stiffness or loss of motion, anesthesia complications, stroke, heart attack , blood clot and . She wished to proceed. Intra-Operative Findings: Intraoperatively the patient was noted to have severe loss of cartilage in all 3 compartments of the knee. She had 15 degree valgus deformity to start the case and her MCL had significant laxity. Description of the Procedure: PEDRO NUNES was identified in the preanesthesia unit. Her right knee was marked as the correct operative side. Informed consent was signed and placed in the chart. The patient was taken to the operating room and placed under anesthesia without complication. A parrish catheter was placed. A tourniquet was placed on the right thigh. The right lower extremity was prepped and draped in the usual sterile fashion. Preoperative time-out was made to correctly identify the patient, side and site. Appropriate intraoperative antibiotics were given within one hour of incision. Tourniquet was inflated. A midline incision was made and carried sharply down to the extensor mechanism. A new 10 blade was used to make a standard medial parapatellar arthrotomy. The patella was subluxed laterally. Electrocautery was used to dissect soft tissue off the superomedial tibia to the midsagittal plane. The knee was flexed up. The anterior horn of the lateral meniscus and the ACL were sharply incised. A drill was used to enter the distal femur. The intramedullary distal femoral cutting guide was pinned on the distal femur. The oscillating saw was used to make the distal femoral cut. The external rotation guide was pinned on the distal femur and the distal femur was sized to a size 5. The size 5 multi-cutting jig was pinned on the distal femur. The oscillating saw was used to make the appropriate 4 chamfer cuts. Next the PCL was completely released. The extramedullary tibial cutting guide was pinned on the proximal tibia and the oscillating saw was used to make the proximal tibial cut perpendicular to the mechanical axis of the tibia. The bone was carefully removed. The knee was brought out into full extension. The spacer block was placed and had excellent fit with the knee in full extension. The medial and lateral ligaments were well balanced. The flexion and extension gaps were well balanced. The knee was flexed up. Lamina tomato paste maker was placed both medially and laterally. Any remaining meniscus was removed with electrocautery. Curved osteotome was used to remove any posterior osteophytes. The tibial tray and drop darian were placed and confirmed a satisfactory tibial cut. The size 5 right femoral trial was impacted onto the distal femur. This trial had excellent fit and stability. The box for the posterior stabilized implant was prepared using a box cut osteotome and a reamer. Next a tibial tray trial and 9 mm insert trial was placed. The knee was taken through a range of motion and had full extension to 130 degrees of flexion. Patellofemoral tracking was satisfactory. The patella was inverted and sized to a size 32. Three peg holes were drilled through the size 32 drill guide. The trial patella was placed and the knee was taken through a range of motion. There was satisfactory patellofemoral tracking. All trials were removed. The tibia was subluxed anteriorly and sized to a size 5. The proximal tibial was prepared with a size 5 keel punch. All bony cut surfaces were irrigated with sterile saline and dried. Final implants were cemented into place starting with the tibia, followed by the femur, and last the patella. A 9 mm insert trial was placed and the knee was brought into full extension. Tourniquet was turned down and the knee was copiously irrigated with sterile saline. Electrocautery was used to obtain meticulous hemostasis. Once the cement had fully cured, the insert trial was removed. Any excess cement was removed from around the hardware and capsule. Final insert chosen was a 9 mm posterior stabilized constrained Timothy II articular insert size 5-6. Stability of the insert was checked and noted to be stable. The extensor mechanism was closed using number 1 vicryls. The rest of the incision was closed in a layered fashion using 0 and 2-0 vicryls. The skin was closed using 3-0 nylon suture. Sterile xeroform, 4x4s and webril were used to cover the incision. Wilver wrap and cold pack were used to cover the dressings. The patients anesthesia was reversed without difficulty. She was taken to the PACU in stable condition. Intended weight-bearing will be as tolerated.
[2019-01-22] MEDS ORDERED: DiMENhydriNATE IV* 50 MG/ML VIAL ONE (18:17)
[2019-01-22] MEDS: fentaNYL* 50 MCG/ML 2 ML VIAL (100 MCG VIAL) IV PRN ×2 (18:18→18:41)
--- NOTE | 2019-01-22 19:15 | CONS ---
CONSULTATION REPORT: DATE OF CONSULT: 01/22/19 PROVIDER: CRISTAL Booker. REQUESTING PHYSICIAN: Dr. Amanda Zhang.* REASON FOR CONSULT: Co-management of chronic medical conditions. HISTORY OF PRESENT ILLNESS/HOSPITAL COURSE: Petrona Cordero is a 68-year-old white female with past medical history significant for knee osteoarthritis, hypertension, and GERD who presented for elective right knee arthroplasty with Dr. Zhang today. The patient failed outpatient medical conservative treatment and elected to proceed with right total knee arthroplasty. The patient was evaluated in the PACU. She had just recently left the OR. She awakes easily and is overall able to answer short questions. She tells me she has knee pain. She denies chest pain, difficulty breathing, abdominal pain, nausea, or vomiting. She has no questions for me. PAST MEDICAL HISTORY: 1. Hypertension. 2. GERD. 3. Hyperlipidemia. 4. There is listed cardiomyopathy and mitral valve disorder on her past medical record from her primary care provider; however, most recent echo on my record is 2008 which has an ejection fraction of 50% and benign heart valves. 5. Basal cell carcinoma, status post resection. PAST SURGICAL HISTORY: 1. Bilateral total hip arthroplasty. 2. Carpal tunnel release. 3. Bunionectomy. 4. Tubal ligation. HOME MEDICATIONS: Include: 1. Amlodipine 5 mg p.o. daily. 2. Losartan 50 mg p.o. daily. 3. Meloxicam 15 mg p.o. daily. 4. Ranitidine 150 mg p.o. b.i.d. 5. Magnesium 30 mg p.o. daily. 6. Vitamin C supplement. 7. Vitamin D supplement. 8. Vitamin D supplement. 9. Probiotic. 10. Metamucil p.r.n. for constipation. ALLERGIES: Contact rash to ADHESIVE TAPE. FAMILY HISTORY: She has a positive family history for coronary artery disease. SOCIAL HISTORY: The patient lives with her . She denies smoking, alcohol use, and illicit drug use. REVIEW OF SYSTEMS: An 11-point review of systems was completed and all pertinent positives and negatives are as above in the HPI. All other systems are negative. PHYSICAL EXAM: General: Older white female, lying in PACU bed, appearing comfortable, in no acute distress. Eyes: PERRL. Sclerae anicteric. ENT: Lips dry. Neck: Supple. Lungs: Clear to auscultation throughout. Cardio: Regular rate and rhythm without murmurs, rubs, or gallops. Abdomen: Soft, nontender, nondistended. Extremities: No clubbing, cyanosis, or edema. Neuro : The patient is initially asleep, but awakens easily to touch, able to follow commands and answer questions despite being minimally drowsy. The patient is alert and oriented x3. Able to move all extremities. No tremors. DIAGNOSTIC STUDIES/LAB DATA: None to report. ASSESSMENT AND PLAN: Petrona Cordero is a 68-year-old white female with past medical history significant for gastroesophageal reflux disease and hypertension who presents for right total knee arthroplasty with Dr. Zhang today. Hospital Medicine has been consulted for co-management of chronic disease. 1. Hypertension. I recommend continuing her home amlodipine and losartan. I am changing her amlodipine to have holding parameters for systolic blood pressure less than 110. 2. Gastroesophageal reflux disease. Continue ranitidine. 3. Questionable cardiomyopathy. While this is on her preoperative clearance from her primary care provider, there was no advisement for her to be seen by cardiology prior to this procedure and I do not have the more recent echocardiogram than 2008. Perhaps, there is a more recent echocardiogram that was performed outpatient that I do not have access to. No management needed at this time. 4. Status post right total knee arthroplasty. Management per orthopedics. 5. Disposition. Per orthopedics. Thank you for allowing us to participate in the care of this patient. We will follow distantly during this admission and can be available for questions at any time. CRISTAL BOOKER [id number]/CPS #: [id number] CHARITY
[2019-01-22] MEDS ORDERED: oxyCODONE TAB* 5 MG TAB ONE (19:26)
[2019-01-22] MEDS: Lactated Ringers 1000 ML Bag* 1,000 ML IV SCH (20:12)
[2019-01-22] MEDS: Magnesium Hydroxide LIQ* 30 ML UDC PO SCH (21:31)
[2019-01-22] MEDS: Famotidine TAB* 20 MG PO SCH (21:31)
[2019-01-22] MEDS: Acetaminophen TAB* 325 MG PO SCH (21:32)
[2019-01-22] MEDS: Docusate CAP* 100 MG PO SCH (21:32)
[2019-01-22] MEDS: ceFAZolin 1 GM ADVAN(*) 1 GM in NS 0.9% 50 ML* 50 ML IVPB SCH (23:48)
[2019-01-23 05:33] LABS: Hematocrit 37 % (35-47); Hemoglobin 12.9 g/dL (12.0-16.0); Mean Platelet Volume 7.8 fL (7.4-10.4); Platelet Count 307 10^3/uL (150-450)
[2019-01-23] MEDS: Lactated Ringers 1000 ML Bag* 1,000 ML IV SCH (05:49)
[2019-01-23] MEDS: oxyCODONE/Acetamin 5/325 MG* TAB PO PRN ×3 (05:50→16:59)
[2019-01-23] MEDS: Acetaminophen TAB* 325 MG PO SCH ×2 (05:50→12:53)
[2019-01-23 05:54] LABS: BUN/Creatinine Ratio 18.9 (8-20); Calcium 9.1 mg/dL (8.6-10.3); Potassium 4.2 mmol/L (3.5-5.0)
[2019-01-23] MEDS: ceFAZolin 1 GM ADVAN(*) 1 GM in NS 0.9% 50 ML* 50 ML IVPB SCH ×2 (07:53→15:51)
[2019-01-23] MEDS: Docusate CAP* 100 MG PO SCH (08:52)
[2019-01-23] MEDS: oxyCODONE TAB* 5 MG TAB PO PRN ×2 (08:52→14:27)
[2019-01-23] MEDS: Famotidine TAB* 20 MG PO SCH (08:52)
[2019-01-23] MEDS ORDERED: Vitamin THERAPEUTIC TAB PO SCH (09:00)
[2019-01-23] MEDS ORDERED: Losartan TAB* 25 MG PO SCH (09:00)
[2019-01-23] MEDS ORDERED: amLODIPine TAB* 5 MG PO SCH ×2 (09:00)
[2019-01-23] MEDS ORDERED: Apixaban* 2.5 MG TAB PO SCH (09:00)
[2019-01-23] MEDS: Magnesium Hydroxide LIQ* 30 ML UDC PO SCH (10:25)
--- NOTE | 2019-01-23 13:42 | DS ---
Orthopedic Discharge Summary - Discharge Summary Date of Admission:01/22/19 Date of Discharge: 01/23/2019 Date of Surgery: 01/22/2019 Attending Orthopedic Provider: Dr. Zhang Pre-operative Diagnosis: Right knee osteoarthritis Operative Procedure: Right total knee arthroplasty Disposition of Patient: Home Condition of Patient: Good History: PEDRO NUNES is a 68 year old F with years of increasingly severe right knee pain. Patient has failed conservative management and has elected to undergo a right total knee replacement Hospital Course: PEDRO was admitted to [facility] on 01/22/19. Patient underwent a right total knee replacement without complication followed by a brief recovery in PACU and transfer to the Short Stay Surgical Unit in stable condition. Our hospitalist service, physical therapy and occupational therapy also participated in this patients care. Post-op day 1: patient was alert and in no acute distress. Dressing was clean, dry and intact. Operative extremity dorsiflexion and plantarflexion intact, sensation intact to light touch distally, DP2+. Dressing was changed, incision was clean, dry and intact. Patient was deemed to be medically and orthopedically stable for discharge. Physical therapy goals were met. Home Medications Medication Instructions Recorded Confirmed Type Meloxicam [Mobic] 1 tab PO QPM 01/20/18 01/22/19 History Amlodipine Besylate [Norvasc] 5 mg PO QAM 01/12/19 01/22/19 History Ascorbic Acid [Vitamin C] 1,000 mg PO QAM 01/12/19 01/22/19 History Cardio Kit 1 tab PO QAM 01/12/19 01/22/19 History Cholecalciferol TAB* [Vitamin D 5,000 unit PO QAM 01/12/19 01/22/19 History TAB*] Food Enzyme 1 tab PO QAM 01/12/19 01/22/19 History Lactobacillus Combination No.8 1 tab PO QAM 01/12/19 01/22/19 History [Adult Probiotic] Losartan Potassium [Cozaar] 50 mg PO QAM 01/12/19 01/22/19 History Turmeric 500 mg PO QAM 01/12/19 01/22/19 History Vitamin E CAP* 360 unit PO QAM 01/12/19 01/22/19 History raNITIdine HCl [Ranitidine HCl] 150 mg PO BID 01/12/19 01/22/19 History Discharge Instructions following Orthopedic Surgery: Activity: * Weight Bearing as tolerated * Continue physical therapy and occupational therapy exercises as shown Wound care: * OK to shower on post-op day 3, no bathing, swimming, or submerging wound. * Use gentle soap, pat dry. Cover with gauze, CONY wrap or tape. * Visiting home nurse to do wound checks. Call Orthopedic office for: * Increased drainage * Redness * Increased pain * Fever Go to ER with shortness of breath or chest pain. Diet: * Regular diet * Increase fluids and fiber to prevent constipation. * Continue to use stool softeners, call office if no bowel motion within 48 hours. Medications See Home Medication List in your packet for medications that you should take after discharge. DVT Prophylaxis: Eliquis Dosin.5 mg, 1 tab every 12 hours x 30 days Pain Control: Percocet Dosin/325 mg 1-2 tabs by mouth every 4-6 hours as needed for pain. Maximum of 10 tabs per day. Please note that Percocet contains Tylenol (acetaminophen). Maximum daily dose of Tylenol is 4000 mg from all sources. Antibiotics are required prior to any dental work. FOLLOW UP: Follow up with [Vicente] Within 10-14 days, call for appointment Please call our office with any questions or concerns ([phone])
[2019-01-23 15:53] VITALS: BP 110/60
[2019-01-24] MEDS ORDERED: Bisacodyl SUPP* 10 MG SUPP PR PRN (16:33)
[2019-01-25] MEDS ORDERED: Scopolamine PATCH Remove* 1 NOTE MISC PATCH OFF ONE (06:17)
== END 2019-01-23 18:35 | disposition home health service (06) | DRG 470 ==
LOC: AA 11:45 → SSU 19:50
PROVIDERS: ADMIT Orthopaedic Surgery Adult Reconstructive Orthopaedic Surgery; ATTEND Orthopaedic Surgery Adult Reconstructive Orthopaedic Surgery
PROC: 0SRC0J9 Replacement of Right Knee Joint with Synthetic Substitute, Cemented, Open Approach (ICD-10-PCS; principal; 2019-01-22 16:00)
DX: M17.0 Bilateral primary osteoarthritis of knee (principal); I42.9 Cardiomyopathy, unspecified; I10 Essential (primary) hypertension; E78.00 Pure hypercholesterolemia, unspecified; K21.9 Gastro-esophageal reflux disease without esophagitis; I34.0 Nonrheumatic mitral (valve) insufficiency; Z96.643 Presence of artificial hip joint, bilateral; M25.461 Effusion, right knee; I83.90 Asymptomatic varicose veins of unspecified lower extremity; K44.9 Diaphragmatic hernia without obstruction or gangrene; E66.9 Obesity, unspecified; L57.0 Actinic keratosis; M25.761 Osteophyte, right knee; L25.9 Unspecified contact dermatitis, unspecified cause; E78.2 Mixed hyperlipidemia; Z85.828 Personal history of other malignant neoplasm of skin; Z68.38 Body mass index [BMI] 38.0-38.9, adult; Z88.8 Allergy status to other drugs, medicaments and biological substances
CPT/HCPCS: 36415; 80048; 85014; 85018; 85049; 88305; 88311; A9270-GY; C1776; G8978-GP-CJ; G8979-GP-CI; J0690; J1100; J1170; J1240; J2250; J2704; J2795; J3010; J3490; J8540

== ENCOUNTER 2019-01-29 17:23 | Emergency (ER) | payer MEDICARE ==
[2019-01-29 18:37] LABS: ABS Basophils 0.1 10^3/ul (0-0.2); ABS Eosinophils 0.2 10^3/ul (0-0.6); ABS Lymphocytes 1.7 10^3/ul (1.0-4.8); ABS Monocytes 0.8 10^3/ul (0-0.8); ABS Neutrophils 4.4 10^3/ul (1.5-7.7); Eosinophil % 3.1 %; Hematocrit 35 % (35-47); Hemoglobin 11.8 g/dL (12.0-16.0); Mean Corpuscular HGB Conc 34 g/dL (31-36); Mean Corpuscular Hemoglobin 30 pg (27-31); Mean Corpuscular Volume 88 fL (80-97); Mean Platelet Volume 7.5 fL (7.4-10.4); Nucleated Red Blood Cells % 0.1; Platelet Count 392 10^3/uL (150-450); Red Blood Count 3.91 10^6 /uL (3.70-4.87); Red Cell Distribution Width 14 % (10-15); White Blood Count 7.3 10^3/uL (3.5-10.8)
[2019-01-29 18:46] LABS: Activated Partial Thrombo Time 34.1 seconds (26.0-38.0); INR 1.03 (0.82-1.09)
[2019-01-29 18:57] LABS: Albumin 3.7 g/dL (3.2-5.2); BUN/Creatinine Ratio 29.2 (8-20); Calcium 9.5 mg/dL (8.6-10.3); EGFR Non-African American 90.1 (>60); Globulin 3.7 g/dL (2-4); Potassium 4.2 mmol/L (3.5-5.0); Total Bilirubin 0.6 mg/dL (0.2-1.0); Total Protein 7.4 g/dL (6.4-8.9)
--- NOTE | 2019-01-29 19:28 | ED ---
Lower Extremity - HPI Summary HPI Summary: 68 year [facility] F [facility] [place] by complains of worsening right calf pain, sorneness, and tightness since today 01/29/19 AM. The patient rates the pain 10/10 in severity. Symptoms aggravated by nothing. Symptoms alleviated by nothing. States she recently had total right knee replacement done by Dr. Zhang on 01/12/19. States she was prescribed oxycodone after the surgery. States she had an US this morning that was positive for DVT. States she was referred to ED. States she is on anticoagulants. - History of Current Complaint Chief Complaint: EDExtremityLower Stated Complaint: BLOOD CLOT RT LEG PER PT Time Seen by Provider: 01/29/19 19:25 Hx Obtained From: Patient Onset of Pain: Hours Onset/Duration: Hours Severity Currently: Severe Pain Intensity: 10 Pain Scale Used: 0-10 Numeric Timing: Constant Location: Is Discrete @ - right calf Aggravating Factor(s): Nothing Alleviating Factor(s): Nothing - Allergies/Home Medications Allergies/Adverse Reactions: Allergies Allergy/AdvReac Type Severity Reaction Status Date / Time Adhesive Tape Allergy Rash Verified 01/22/19 13:09 PMH/Surg Hx/FS Hx/Imm Hx Endocrine/Hematology History: Denies: Hx Anticoagulant Therapy, Hx Diabetes, Hx Thyroid Disease Cardiovascular History: Reports: Hx Angina, Hx Hypertension, Other Cardiovascular Problems/Disorders - murmer Denies: Hx Congestive Heart Failure, Hx Hypercholesterolemia, Hx Pacemaker/ ICD Respiratory History: Denies: Hx Asthma, Hx Chronic Obstructive Pulmonary Disease (COPD) GI History: Reports: Hx Gastroesophageal Reflux Disease, Hx Hiatal Hernia Denies: Other GI Disorders History: Denies: Hx Dialysis, Hx Renal Disease Musculoskeletal History: Reports: Hx Arthritis Denies: Other Musculoskeletal History Sensory History: Reports: Hx Cataracts - cataract removed from Rt, cataract present in Left, Hx Contacts or Glasses - reading glasses Denies: Hx Hearing Aid Opthamlomology History: Reports: Hx Cataracts - cataract removed from Rt, cataract present in Left, Hx Contacts or Glasses - reading glasses Neurological History: Reports: Hx Migraine - No longer have migraines Denies: Hx Dementia, Hx Seizures Psychiatric History: Denies: Hx Substance Abuse - Surgical History Surgery Procedure, Year, and Place: BILATERAL HIP REPLACEMENT/BUNION REMOVAL/ TUBIAL LIGATION. total right knee 01/12/19 Hx Anesthesia Reactions: No Infectious Disease History: No Infectious Disease History: Denies: Hx Hepatitis, Hx Human Immunodeficiency Virus (HIV), History Other Infectious Disease, Traveled Outside the [place] in Last 30 Days - Family History Known Family History: Positive: Cardiac Disease - CAD - Social History Alcohol Use: Rare Alcohol Amount: social Hx Substance Use: No Substance Use Type: Reports: None Hx Tobacco Use: No Smoking Status (MU): Never Smoked Tobacco Review of Systems Negative: Fever Positive: Other - right calf pain, sorneness, and tightness All Other Systems Reviewed And Are Negative: Yes Physical Exam - Summary Physical Exam Summary: Appearance: Well-appearing, Well-nourished, lying in bed comfortable Skin: Warm, dry, no obvious rash Eyes: sclera anicteric, no conjunctival pallor ENT: mucous membranes moist Neck: deferred Respiratory: No signs of respiratory distress Cardiovascular: Appears well perfused, pulses are nml Abdomen: deferred Musculoskeletal: She has a wrap around right knee. Her surgical wound was not inspected. There is swelling in her right lower leg with slight degree of plethora but no definite erythema. Her right leg is diffusely tender. Neurological: Awake and alert, mentation is normal, speech is fluent and appropriate Psychiatric: affect is normal, does not appear anxious or depressed Triage Information Reviewed: Yes Vital Signs On Initial Exam: Initial Vitals Temp Pulse Resp BP Pulse Ox 98.6 F 72 18 142/86 97 01/29/19 17:34 01/29/19 17:34 01/29/19 17:34 01/29/19 17:34 01/29/19 17:34 Vital Signs Reviewed: Yes Procedures - Sedation Patient Received Moderate/Deep Sedation with Procedure: No Diagnostics - Vital Signs Vital Signs Temp Pulse Resp BP Pulse Ox 01/29/19 17:34 98.6 F 72 18 142/86 97 - Laboratory Lab Results: Lab Results 01/29/19 01/29/19 01/29/19 Range/Units 18:29 18:29 18:29 WBC 7.3 (3.5-10.8) 10^3/uL RBC 3.91 (3.70-4.87) 10^6 /uL Hgb 11.8 L (12.0-16.0) g/dL Hct 35 (35-47) % MCV 88 (80-97) fL MCH 30 (27-31) pg MCHC 34 (31-36) g/dL RDW 14 (10-15) % Plt Count 392 (150-450) 10^3/uL MPV 7.5 (7.4-10.4) fL Neut % (Auto) 60.7 % Lymph % (Auto) 24.0 % Amelia % (Auto) 11.3 % Eos % (Auto) 3.1 % Baso % (Auto) 0.9 % Absolute Neuts (auto) 4.4 (1.5-7.7) 10^3/ul Absolute Lymphs (auto) 1.7 (1.0-4.8) 10^3/ul Absolute Monos (auto) 0.8 (0-0.8) 10^3/ul Absolute Eos (auto) 0.2 (0-0.6) 10^3/ul Absolute Basos (auto) 0.1 (0-0.2) 10^3/ul Absolute Nucleated RBC 0.0 10^3/ul Nucleated RBC % 0.1 INR (Anticoag Therapy) 1.03 (0.82-1.09) APTT 34.1 (26.0-38.0) seconds Sodium 137 (135-145) mmol/L Potassium 4.2 (3.5-5.0) mmol/L Chloride 101 (101-111) mmol/L Carbon Dioxide 29 (22-32) mmol/L Anion Gap 7 (2-11) mmol/L BUN 19 (6-24) mg/dL Creatinine 0.65 (0.51-0.95) mg/dL Est GFR ( Amer) 109.0 (>60) Est GFR (Non-Af Amer) 90.1 (>60) BUN/Creatinine Ratio 29.2 H (8-20) Glucose 101 H (70-100) mg/dL Calcium 9.5 (8.6-10.3) mg/dL Total Bilirubin 0.60 (0.2-1.0) mg/dL AST 39 (13-39) U/L ALT 56 H (7-52) U/L Alkaline Phosphatase 117 H (34-104) U/L Total Protein 7.4 (6.4-8.9) g/dL Albumin 3.7 (3.2-5.2) g/dL Globulin 3.7 (2-4) g/dL Albumin/Globulin Ratio 1.0 (1-3) Result Diagrams: 01/29/19 18:29 01/29/19 18:29 Lab Statement: Any lab studies that have been ordered have been reviewed, and results considered in the medical decision making process. Re-Evaluation - Re-Evaluation First Eval Re-Evaluation Time: 19:40 Change: Improved Comment: agreeable to d/c. understands d/c plans Lower Extremity Course/Dx - Course Course Of Treatment: 68 year old F s/p total right knee replacement on 01/12/19 complains of worsening right calf pain, sorneness, and tightness since today AM. States she had an US this morning with dx DVT. States she has been taking oxycodone x1 after the surgery usually with relief, but today, oxycodone x1 with no relief. States she is on anticoagulants. Bloodwork results with no significant abnormalities except for Hgb 11.8, BUN/creatinine 29.2, glucose 101 , ALT 56, and alkaline phosphatase 117. Spoke with Dr. Barrios, orthopedics, who agrees with increasing Eliquis dose. In the ED course, patient was given oxycodone x2 and Eliquis 10 mg. The patient feels better after medications. Patient will be discharged home with prescription for with prescription for Eliquis 10 mg PO BID and follow up from her primary care provider. Patient was instructed to return to Emergency Department for new or worsening symptoms. Patient understands and is agreeable to this plan. - Diagnoses Provider Diagnoses: Deep vein thrombosis (DVT) - Physician Notifications Discussed Care Of Patient With: Brody Barrios Time Discussed With Above Provider: 19:32 Instructed by Provider To: Other - Dr. Barrios, orthopedics, agrees with increasing Eliquis dose. Discharge ED - Sign-Out/Discharge Documenting (check all that apply): Patient Departure - Discharge - Discharge Plan Condition: Good Disposition: HOME Prescriptions: Apixaban* [Eliquis*] 10 mg PO BID #60 tab Patient Education Materials: Deep Vein Thrombosis (ED) Referrals: Lavinia Desai MD [Primary Care Provider] - - Billing Disposition and Condition Condition: GOOD Disposition: Home - Attestation Statements Document Initiated by Scribe: Yes Documenting Scribe: Matilda Parr Provider For Whom Scribe is Documenting (Include Credential): Venancio James MD Scribe Attestation: I, Matilda Parr, scribed for Venancio James MD on 01/30/19 at 0201. Scribe Documentation Reviewed: Yes Provider Attestation: The documentation as recorded by the scribe, Matilda Parr accurately reflects the service I personally performed and the decisions made by me, Venancio James MD Status of Scribe Document: Viewed
[2019-01-29] MEDS ORDERED: oxyCODONE/Acetamin 5/325 MG* TAB PO ONE (19:29)
[2019-01-29] MEDS ORDERED: Apixaban* 5 MG TAB PO ONE (20:00)
[2019-01-29 20:05] VITALS: BP 143/71
== END 2019-01-29 20:00 | disposition home or self-care (01) ==
LOC: ED 17:23
DX: I82.401 Acute embolism and thrombosis of unspecified deep veins of right lower extremity (principal); Z96.651 Presence of right artificial knee joint; I10 Essential (primary) hypertension; K21.9 Gastro-esophageal reflux disease without esophagitis; Z96.643 Presence of artificial hip joint, bilateral; Z79.01 Long term (current) use of anticoagulants; Z79.899 Other long term (current) drug therapy
CPT/HCPCS: 36415; 80053; 85025; 85610; 85730; 99282; A9270-GY